=== PATIENT | male | born 1960 | race Caucasian/White ===

== ENCOUNTER 2017-06-08 01:56 | Emergency (ER) | payer OTHER ==
[~2017-06-08] VITALS: Ht 170.2 cm; Wt 103.3 kg
[~2017-06-08 01:56] MED LIST: ACET325T11; ASPI81 PO; CHLO25CA PO; CLON-352 PO; CORE12.5 PO; DIPH25 PO; LISI-363 PO
[2017-06-08 02:01] VITALS: BP 176/82; PULSE 55; RESP 18; TEMP 97.7; O2SAT 96
[2017-06-08] MEDS ORDERED: CARV12.52 PO (02:14)
[2017-06-08] MEDS ORDERED: LISI-515 PO (02:14)
[2017-06-08] MEDS ORDERED: HYDR-3799 PO (02:14)
[2017-06-08] MEDS ORDERED: ASPI-516 CHEW (02:14)
--- NOTE | 2017-06-08 02:35 | PD ---
HPI Chief Complaint: ENT Complaint Time Seen by Provider: 02:33 Travel History International Travel<30 days: No Contact w/Intl Traveler<30days: No Traveled to known affect area: No History of Present Illness HPI 56-year-old male with history of CAD valvular heart disease and hypertension presents to the emergency department for complaint of insomnia and urge to swallow. Patient states for the past 3 nights he has not been able to go to sleep easily. Patient has been taking [id number] melatonin to help with sleep without relief. Patient states tonight since 12:00 he is also been very thirsty with urge to swallow and sipping water without relief or satisfying his need to swallow. The patient denies any difficulty with swallowing. Patient has no foreign body sensation. Patient has no pain. Patient states he just feels as if he needs to keep sipping water. Patient also reports that he is upset because he cannot go to sleep. Patient states he has been trying to go to sleep for 2 hours unsuccessfully. Patient denies being diabetic. Patient denies being anxious about any specific concerns prior to going to bed. Patient states he typically drinks water all day long and does not have any difficulty with thirst and does not have an urge to drink sips of water. Patient states he is unable to guzzle water or drink large volumes of fluids quickly; he can only sip and that is his normal way of drinking. Patient states he has had some dry heaving and the thought of drinking a large amount of water or large bolus of fluid makes him nauseated. Patient denies any chest pain, shortness of breath, sweats, referred neck jaw back shoulder arm or abdominal pain. Patient denies choking on any food or having difficulty swallowing solids or liquids or handling oral secretions. Patient's had no hoarseness or stridor. Patient denies sore throat pain. Patient denies sensation or noting swelling of the mucous membranes; no lip tongue or throat swelling.Patient also states that trying to open his mouth wide does not cause him any pain but makes him nauseated. Patient reports he takes hydralazine and carvedilol for his blood pressure and numerous other medicines he just does not remember the names of those medications. Patient states he has been on the same medications for 3 years. Patient denies taking a blood thinning agent. Patient reports he took his carvedilol and hydralazine tonight and 2 melatonin. [facility] Past Medical History Narrative Medical Depression chest pain CHF CAD valvular heart disease seizure aortic valve replacement; no tobacco use no alcohol use; nursing notes reviewed Autoimmune Disease: No Depression: Yes Heart Rhythm Problems: Yes Cancer: No Cardiovascular Problems: Yes High Cholesterol: No Chemotherapy: No Chest Pain: Yes Congestive Heart Failure: Yes Cerebrovascular Accident: No Coronary Artery Disease: Yes Diminished Hearing: No Endocrine: No Gastrointestinal Disorders: Yes GERD: No Genitourinary: No Headaches: No Hiatal Hernia: No Hypertension: Yes Immune Disorder: No Implanted Vascular Access Dvce: Yes Musculoskeletal: No Neurologic: Yes Psychiatric: No Reproductive: No Respiratory: No Immunizations Current: No Migraines: Yes Radiation Therapy: No Seizures: Yes Ulcer: Yes Tetanus Vaccination: > 5 Years Influenza Vaccination: Yes Past Surgical History Abdominal Surgery: Yes (HERNIA) AICD: No Arteriovenous Shunt: No Cardiac Surgery: Yes (AORTIC VALVE REPLACEMENT X 2 08/02 AND 06/03) Ear Surgery: No Endocrine Surgery: No Eye Surgery: No Genitourinary Surgery: No Gynecologic Surgery: No Insulin Pump: No Joint Replacement: No Neurologic Surgery: No Oral Surgery: No Thoracic Surgery: No Valve Replacement: Yes (AORTIC VALVE X 2; FIRST ONE LEAKED) Other Surgery: Yes Social History Alcohol Use: No ([facility]OX IN [facility]) Tobacco Use: No Substance Use: No Allergies-Medications (Allergen,Severity, Reaction): Coded Allergies: aspirin (Unverified Allergy, Severe, UNKNOWN , 06/08/17) oxycodone (Unverified Allergy, Severe, UNKNOWN , 06/08/17) Reported Meds & Prescriptions Reported Meds & Active Scripts Active Reported Hydralazine HCl 25 Mg Tablet 25 Mg PO BID Lisinopril 20 Mg Tab 20 Mg PO DAILY Carvedilol 12.5 Mg Tab 12.5 Mg PO BID Aspirin 81 Mg Chew 81 Mg CHEW DAILY Review of Systems Except as stated in HPI: all other systems reviewed are Neg General / Constitutional: No: Fever, Chills Eyes: No: Visual changes HENT: No: Headaches, Vertigo, Lightheadedness Cardiovascular: No: Chest Pain or Discomfort, Palpitations, Diaphoresis Respiratory: No: Shortness of Breath, Stridor Gastrointestinal: No: Abdominal Pain Genitourinary: No: Dysuria Musculoskeletal: No: Myalgias, Arthralgias Skin: No Rash Neurologic: No: Weakness, Dizziness, Syncope, Focal Abnormalities, Coordination Problem Psychiatric: No: Depression, Suicidal Ideations Hematologic/Lymphatic: No: Easy Bruising Physical Exam Narrative GENERAL: Well-developed well-nourished male no acute distress no respiratory distress; GCS 15; no stridor no hoarseness no drooling. SKIN: Warm and dry. HEAD: Normocephalic. EYES: No scleral icterus. No injection or drainage. ENT: Mucous membranes moist airways patent no posterior pharyngeal edema no uvular edema no angioedema. NECK: Supple, trachea midline. No JVD or lymphadenopathy. CARDIOVASCULAR: Regular rate and rhythm without murmurs, gallops, or rubs. RESPIRATORY: Breath sounds equal bilaterally. No accessory muscle use. GASTROINTESTINAL: Abdomen soft, non-tender, nondistended. MUSCULOSKELETAL: No cyanosis, or edema. BACK: Nontender without obvious deformity. No CVA tenderness. Data Data Last Documented VS Vital Signs Date Time Temp Pulse Resp B/P (MAP) Pulse Ox O2 Delivery O2 Flow Rate FiO2 06/08/17 04:40 54 18 111/63 (79) 97 Room Air 06/08/17 02:01 97.7 Orders Orders Blood Glucose (06/08/17 02:33) Complete Blood Count With Diff (06/08/17 02:33) Basic Metabolic Panel (Bmp) (06/08/17 02:33) Troponin I (06/08/17 02:33) Electrocardiogram (06/08/17 ) Ondansetron Inj (Zofran Inj) (06/08/17 02:45) Magnesium (Mg) (06/08/17 02:33) Sodium Chlorid 0.9% 500 Ml Inj (Ns 500 M (06/08/17 03:30) D-Dimer (06/08/17 03:26) Chest, Single Ap (06/08/17 ) Ed Discharge Order (06/08/17 04:25) Labs Laboratory Tests Test 06/08/17 02:45 White Blood Count 8.2 TH/MM3 Red Blood Count 3.65 MIL/MM3 Hemoglobin 11.3 GM/DL Hematocrit 31.3 % Mean Corpuscular Volume 85.9 FL Mean Corpuscular Hemoglobin 31.0 PG Mean Corpuscular Hemoglobin Concent 36.1 % Red Cell Distribution Width 12.5 % Platelet Count 217 TH/MM3 Mean Platelet Volume 7.4 FL Neutrophils (%) (Auto) 64.4 % Lymphocytes (%) (Auto) 24.8 % Monocytes (%) (Auto) 7.6 % Eosinophils (%) (Auto) 2.9 % Basophils (%) (Auto) 0.3 % Neutrophils # (Auto) 5.4 TH/MM3 Lymphocytes # (Auto) 2.0 TH/MM3 Monocytes # (Auto) 0.6 TH/MM3 Eosinophils # (Auto) 0.2 TH/MM3 Basophils # (Auto) 0.0 TH/MM3 CBC Comment AUTO DIFF Differential Comment D-Dimer Quantitative (PE/DVT) 0.42 MG/L FEU Blood Urea Nitrogen 16 MG/DL Creatinine 0.82 MG/DL Random Glucose 104 MG/DL Calcium Level 8.8 MG/DL Magnesium Level 1.6 MG/DL Sodium Level 127 MEQ/L Potassium Level 4.0 MEQ/L Chloride Level 92 MEQ/L Carbon Dioxide Level 27.0 MEQ/L Anion Gap 8 MEQ/L Estimat Glomerular Filtration Rate 98 ML/MIN Troponin I LESS THAN 0.02 NG/ML MDM Medical Decision Making Medical Screen Exam Complete: Yes Emergency Medical Condition: Yes Medical Record Reviewed: Yes Interpretation(s) EKG: Sinus bradycardia rate 47 first-degree AV block no acute ST elevation injury pattern however patient is identified to have right bundle branch block review of medical records indicates patient has had right bundle branch block at least since 2011 CBC & BMP Diagram 06/08/17 02:45 Calcium Level 8.8, Magnesium Level 1.6 Vital Signs Date Time Temp Pulse Resp B/P (MAP) Pulse Ox O2 Delivery O2 Flow Rate FiO2 06/08/17 03:17 52 18 126/69 (88) 97 Room Air 06/08/17 02:01 97.7 55 18 176/82 (113) 96 Troponin I: Less than 0.02, not elevated D-dimer: 0.42, not elevated cxr: nad Differential Diagnosis Insomnia, anxiety, angioedema, allergic reaction, electrolyte disturbance, arrhythmia, ACS, diabetes, PE Narrative Course Glucose 109; specimens collected and sent for result Patient sleeping awakened reports this is the best sleep he has had in days Patient informed of lab results including mild hyponatremia is encouraged to decrease excess consumption of water and to follow-up with his primary care provider as he will need to have a repeat serum sodium level done this week. Patient stable for outpatient management; patient reports sensation/symptoms have resolved after sleeping here in the ED. Diagnosis Primary Impression: Insomnia Qualified Codes: G47.00 - Insomnia, unspecified Additional Impression: Hyponatremia Referrals: Primary Care Physician 1 day Patient Instructions: General Instructions Additional Instructions: Follow-up with your primary care provider this week; need to have sodium level re-checked Return to the emergency department for any concerns or change in condition Avoid excessive water consumption as it can further lower your sodium continue your current medications Med/Other Pt SpecificInfo: No Change to Meds Disposition: 01 DISCHARGE HOME Condition: Stable Yary Ferrer MD Jun 08, 2017 02:35
[2017-06-08] MEDS ORDERED: ONDANSETRON HCL 4 MG/2 ML VIAL IV PUSH ONE (02:45)
[2017-06-08 03:04] LABS: AUTOMATED NEUTROPHIL # 5.4 TH/MM3 (1.8-7.7); BASOPHIL % 0.3 % (0.0-2.0); EOSINOPHIL # 0.2 TH/MM3 (0-0.4); EOSINOPHIL % 2.9 % (0.0-4.0); HEMATOCRIT 31.3 % (39.0-51.0); HEMOGLOBIN 11.3 GM/DL (13.0-17.0); LYMPH % 24.8 % (9.0-44.0); MEAN CELL VOLUME 85.9 FL (80.0-100.0); MEAN PLATELET VOLUME 7.4 FL (7.0-11.0); MONO % 7.6 % (0.0-8.0); MONOCYTE # 0.6 TH/MM3 (0-0.9); NEUT % 64.4 % (16.0-70.0); PLATELET COUNT 217 TH/MM3 (150-450); RED BLOOD COUNT 3.65 MIL/MM3 (4.50-5.90); RED CELL DISTRIBUTION WIDTH 12.5 % (11.6-17.2); WHITE BLOOD COUNT 8.2 TH/MM3 (4.0-11.0)
[2017-06-08 03:14] LABS: CHLORIDE 92 MEQ/L (98-107); SODIUM (NA) 127 MEQ/L (136-145)
[2017-06-08 03:17] VITALS: BP 126/69; PULSE 52; RESP 18; O2SAT 97
[2017-06-08 03:17] LABS: BLOOD UREA NITROGEN 16 MG/DL (7-18); CALCIUM 8.8 MG/DL (8.5-10.1); GLUCOSE,RANDOM 104 MG/DL (74-106); MAGNESIUM 1.6 MG/DL (1.5-2.5)
[2017-06-08 03:20] LABS: CREATININE 0.82 MG/DL (0.60-1.30); GLOMERULAR FILTRATION RATE 98 ML/MIN (>89)
[2017-06-08 03:22] LABS: MEAN CORPUSCULAR HGB CONC 36.1 % (32.0-36.0)
[2017-06-08 03:25] LABS: TROPONIN I LESS THAN 0.02 NG/ML (0.02-0.05)
[2017-06-08] MEDS ORDERED: SODIUM CHLORID 0.9% 500 ML INJ 500 ML IV ONE (03:30)
[2017-06-08 04:40] VITALS: BP 111/63; PULSE 54; RESP 18; O2SAT 97
--- NOTE | 2017-06-08 05:23 | RADRPT ---
EXAM DATE/TIME: 06/08/2017 03:59 [facility] COMPARISON: No previous studies available for comparison. INDICATIONS : Short of breath. MEDICAL HISTORY : None. SURGICAL HISTORY : CABG. ENCOUNTER: Initial ACUITY: 1 day PAIN SCORE: 0/10 LOCATION: Bilateral chest FINDINGS: 2 portable frontal views of the chest show median sternotomy wires and prosthetic heart valve. The he art is mildly enlarged. Lungs are clear without infiltrate or effusion. CONCLUSION: Mild cardiomegaly. Clear lungs. Brigido Randle Jr., MD on June 08, 2017 at 5:21 Board Certified Radiologist. This report was verified electronically.
--- NOTE | 2017-06-08 23:26 | EKG ---
Date Performed: 06/08/2017 Time Performed: 02:42:44 PTAGE: 56 years EKG: SINUS BRADYCARDIA WITH SINUS ARRHYTHMIA WITH FIRST DEGREE AV BLOCK RIGHT BUNDLE BRANCH BLOC K ABNORMAL ECG PREVIOUS TRACING : 09/19/2011 12.55 Compared to previous tracing sinus bradycardia is new DOCTOR: Danilo Santos Interpretating Date/Time 06/08/2017 23:24:37
== END 2017-06-08 04:53 | disposition home or self-care (01) ==
LOC: PHED 01:56
DX: G47.00 Insomnia, unspecified (principal); E87.1 Hypo-osmolality and hyponatremia; I11.0 Hypertensive heart disease with heart failure; I50.9 Heart failure, unspecified; R94.31 Abnormal electrocardiogram [ECG] [EKG]
CPT/HCPCS: 71045; 80048; 83735; 84484; 85379; 93005; 96361; 96374; 99285; J2405; J7040